=== PATIENT | female | born 1965 | race Two or more races ===

== ENCOUNTER 2024-12-01 08:57 | Outpatient (REF) | payer OTHER, SELFPAY ==
--- OUTSIDE RECORDS SUMMARY | 2024-12-01 09:26 | XMS_ITS | Clinical Summary ---
Author Organization [facility] [address] [place] [address] [place] [id number] Phone Care Team Providers Care Block Inspector Name Role Phone Frank Humphrey Primary Care Provider [phone] Allergies Active Allergy Reactions Criticality Noted Date Comments Lisinopril Cough 11/13/2012 Phenytoin Sodium Extended 02/19/2016 Other Reaction(s): OTHER Patient dizzy and confusion Medications albuterol HFA (PROAIR HFA ; PROVENTIL HFA ; VENTOLIN HFA) 90 mcg/actuation inhaler Inhale 2 puffs. 2 Active azelastine (ASTELIN) 137 mcg (0.1 %) nasal spray 3 Active betamethasone dipropionate 0.05 % lotion Apply topically 2 (two) times a day if needed. 1 Active clotrimazole-betam ethasone (LOTRISONE) 1-0.05 % cream Apply sparingly to external affected area 2 times daily 2 Active polyethylene glycol (PEG) 17 gram/dose oral powder MIX AND TAKE 17 GRAMS BY MOUTH EVERY DAY 0 Active levETIRAcetam (KEPPRA) 750 mg tablet Take 1 tablet (750 mg total) by mouth. Active LORazepam (ATIVAN) 0.5 mg tablet Take 1 tablet (0.5 mg total) by mouth. 2 Active montelukast (SINGULAIR) 10 mg tablet Take 1 tablet (10 mg total) by mouth at bedtime. 4 Active OXcarbazepine (TRILEPTAL) 300 mg tablet Take 1 tablet (300 mg total) by mouth. Active sertraline (ZOLOFT) 50 mg tablet TAKE 1 TABLET BY MOUTH EVERY DAY 90 tablet 3 5 Active atorvastatin (LIPITOR) 20 mg tabletIndications: Mixed hyperlipidemia TAKE 1 TABLET BY MOUTH EVERY DAY 90 tablet 5 Active losartan (COZAAR) 100 mg tablet TAKE 1 TABLET BY MOUTH EVERY DAY 30 tablet 3 5 Active Active Problems Problem Noted Date Diagnosed Date Anxiety 06/05/2022 Mixed hyperlipidemia 04/21/2018 Elevated cholesterol 12/01/2017 Symptomatic menopausal or female climacteric sta lisbet 07/23/2011 S/P BSO (status post bilateral salpingo-oophorec singh) 07/23/2011 Status post vaginal hysterectomy 07/23/2011 HTN (hypertension) 10/05/2010 Asthma 08/21/2005 Venous (peripheral) insufficiency 06/09/2005 Irritable bowel syndrome 06/09/2005 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 ([facility] V24, [facility] V28) 06/09/2005 Overview (08/25/2023): [facility] - 12/08/11 - witnessed grand mal seizure Immunizations Name Administration Dates Next Due Influenza, Unspecified 03/21/2021,03/08/2019 Pneumococcal polysaccharide 23 valent (Pneumovax 23) 2yo and older 06/12/2021 Td Tetanus diptheria (Tdvax) 7yo and older 10/21,06/23/1997 Tdap Tetanus diptheria acell ular pertussis (Boostrix; Adacel) 7yo and older 09/09/2007 Surgical History Surgery Date Site/Laterality Comments COLONOSCOPY PROCEDURE: HISTORICAL COLONOSCOPY; COMMENT: 2005 and mar 2014dr cristofernacho also had colonoscopy 2018 Dr. Pathak OTHER SURGICAL HISTORY PROCEDURE: HISTORY OTHER; COMMENT: bilat vaicose veins dr vargas HYSTERECTOMY 02/2011 PROCEDURE: HISTORICAL HYSTERECTOMY; COMMENT: with BSO BREAST BIOPSY PROCEDURE: BX BREAST; PERC NEEDLE CORE W/IMAG GUID; COMMENT: ? side neg Medical History Medical History Date Comments Generalized convulsive epile psy without mention of intractable epilepsy 06/09/2005 DX:Generalized convulsive ep ilepsy without mention of intractable epilepsy Irritable bowel syndrome 06/09/2005 DX:Irri table bowel syndrome Unspecified venous (peripher al) insufficiency 06/09/2005 DX:Unspecified venous (perip heral) insufficiency Family history of colonic polyps 08/29/2006 DX:Family history of colonic polyps; COMMENT: next CN due [address]m dr weber HTN (hypertension) 10/05/2010 DX:HTN (hyper tension) Diabetes (CMS/HCC V24, CMS/HCC V28) DX:Diabetes (HCC) Family History Medical History Relation Name Comments Diabetes Brother Coronary artery disease Father billy y in life 45 Diabetes Father Hypertension Father Colon polyps Mother Heart failure Mother pacemaker Osteoporosis Mother Thyroid disease Mother Colon polyps Sister 1 fred Diabetes Sister 1 fred Diabetes Sister 2 corwin Blindness Neg Hx Breast cancer Neg Hx Cataracts Neg Hx Glaucoma Neg Hx Macular degeneration Neg Hx Other cancer Neg Hx Ovarian cancer Neg Hx Pancreatic cancer Neg Hx Prostate cancer Neg Hx Strabismus Neg Hx Uterine cancer Neg Hx Relation Name Status Comments Brother Alive htn dm Father (Age 45) DM mi Mother Alive HTNpositive for colonic polyps cholesterol Sister 1 fred Alive HTN fibromyalgi a Sister 2 corwin Alive htn tkr fibromy algia Social History Tobacco Use Types Packs/Day Years Used Date Smoking Tobacco: Never Smokeless Tobacco: Never Alcohol Use Standard Drinks/Week Comments No 0 (1 standard drink = 0.6 oz pur e alcohol) Comments Unknown Sex and Gender Information Value Date Recorded Sex Assigned at Female 05/27/2024 1:52 PM EST Legal Sex Female 2:59 AM EST Gender Identity Female 05/27/2024 1:52 PM EST Sexual Orientation Choose not to disclose 2023 1:52 PM EST Obstetrics History Para Term AB IAB SAB Ectopic Multiple Livin g Live Births 1 1 1 1 Date Outcome GA Total Labor Labor/2nd/3rd Weight Sex Type Anes PTL Darlin A1 A5 Name Clin Term Last Filed Vital Signs Vital Sign Reading Time Taken Comments Blood Pressure 124/78 12/24/2023 11:38 AM EDT Pulse 75 12/24/2023 11:38 AM EDT Temperature - - Respiratory Rate - - Oxygen Saturation - - Inhaled Oxygen Concentration - - Weight 71.5 kg (157 lb 9.6 oz) 12/24/2023 11:38 AM EDT Height 154.9 cm (5' 1 ) 12/24/2023 11:38 AM EDT Body Mass Index 29.78 12/24/2023 11:38 AM EDT Plan of Treatment Upcoming Encounters Date Type Department Care Team (Late st Contact Info) Description 01/12/2025 12:00 PM EDT Office Visit Adult Medicine [facility] [address] [place] [phone] Frank Humphrey, PA [address] [place] [address] Health Maintenance Due Date Last Done Comments Zoster Vaccines (1 of 2) 2013 Depression Screening 06/01/2022 HIV Screening 06/01/2022 Social Influencers of Health Screening 06/01/2022 Pneumococcal Vaccine: 50+ Years (2 of 2 - PCV) 06/12/2022 06/12/2021 Pneumococcal Vaccine: Pediatrics (0 to 5 Years) and At-Risk Patients (6 to 64 Years) (2 of 2 - PCV) 06/12/2022 06/12/2021 RSV Immunization Adult Patients (1 - Risk 60-74 years 1-dose series) 2023 COVID-19 Vaccine ( season) 2024 06/20/2021, 07/29/2020, 06/23/2020 Hypertension/CHF/CAD Annual BMP Blood Test 12/23/2024 12/24/2023 Colorectal Cancer Screening: Colonoscopy 02/19/2026 02/19/2019 Breast Cancer Screening 05/29/2026 05/29/20 24, 04/23/2023, 04/20/2022, Additional history exists Cervical Cancer Screening: Pap Smear 07/02/2026 07/02/2023 DTaP,Tdap,and Td Vaccines (4 - Td or Tdap) 10/22/2027 10/21/2017, 09/09/2007, 06/23/1997 Cholesterol Screening (Lipid Panel) 12/23/2028 12/24/2023, 02/05/2023 Hepatitis C Screening Completed 10/11/2021 Influenza Vaccine Completed 03/03/2024, , 03/08/2019 HIB Vaccines Aged Out No longer eligi ble based on patient's age to complete this topic HPV Vaccines Aged Out No longer eligi ble based on patient's age to complete this topic Hepatitis A Vaccines Aged Out No long er eligible based on patient's age to complete this topic Hepatitis B Vaccines Aged Out No long er eligible based on patient's age to complete this topic IPV Vaccines Aged Out No longer eligi ble based on patient's age to complete this topic MMR Vaccines Aged Out No longer eligi ble based on patient's age to complete this topic Meningococcal ACWY Vaccine Aged Out N o longer eligible based on patient's age to complete this topic Meningococcal B Vaccine Aged Out No l onger eligible based on patient's age to complete this topic RSV Immunization Patients Under 20 months Aged Out No longer eligible based on patient's age to complete this topic Varicella Vaccines Aged Out No longer eligible based on patient's age to complete this topic Procedures Procedure Name Priority Date/Time Associated Diagnosis Comments MG MAMMO DIGITAL SCREENING W GARCIA BILAT Routine 05/29/2024 11:17 AM EST Encounter for screening mammogram for malignant neoplasm of breast LIPID PANEL Routine 02/05/2023 HEPATITIS C SCREENING Routine 10/11/2021 COLONOSCOPY Routine 02/19/2019 from Last 3 Months or Most Recently Relevant to Health Maintenance Results * MG Mammo Digital Screening w Garcia bilat (05/29/2024 11:17 AM EST) Anatomical Region Laterality Modality Breast Bilateral Mammography 05/31/2024 2:49 PM EST Impressions 05/31/2024 2:50 PM EST No mammographic evidence of malignancy. BREAST DENSITY: B - There are scattered areas of fibroglandular density. BI-RADS CATEGORY: 1 - NEGATIVE RECOMMENDATION: Screening bilateral mammogram is recommended in 1 year. MAMMO LOCATION: [facility], [address] [place] [address], [id number], . -------- FINAL REPORT -------- Dictated By: Janelle Michael Dictated Date: 05/31/2024 14:49 ET Assigned Physician: Janelle Michael Reviewed and Electronically Signed By: Janelle Michael Signed Date: 05/31/2024 14:50 ET Workstation ID: [id number] Transcribed By: Self Edit Transcribed Date: 05/31/2024 14:49 ET Narrative 05/31/2024 2:50 PM EST EXAM: Screening Mammogram CLINICAL: 59 years old, Female, routine annual exam. COMPARISON: 04/23/2023 and as far back as 04/05/2020 ?? TECHNIQUE: Bilateral MLO and CC views were obtained digitally with 3-D mammogram (digital breast tomosynthesis). Computer-aided detection was utilized in evaluation of this exam (CAD). FINDINGS: No new suspicious mass, architectural distortion, or suspicious calcifications. Procedure Note Janelle Michael MD - 05/31/2024 EXAM: Screening Mammogram CLINICAL: 59 years old, Female, routine annual exam. COMPARISON: 04/23/2023 and as far back as 04/05/2020 TECHNIQUE: Bilateral MLO and CC views were obtained digitally with 3-Dmammogram (digital breast tomosynthesis). Computer-aided detection wasutilized in evaluation of this exam (CAD). FINDINGS: No new suspicious mass, architectural distortion, or suspiciouscalcifications. IMPRESSION: No mammographic evidence of malignancy. BREAST DENSITY: B - There are scattered areas of fibroglandular density. BI-RADS CATEGORY: 1 - NEGATIVE RECOMMENDATION: Screening bilateral mammogram is recommended in 1 year. MAMMO LOCATION: [facility], [address] [place] [address], [id number], . -------- FINAL REPORT -------- Dictated By: Janelle Michael Dictated Date: 05/31/2024 14:49 ET Assigned Physician: Janelle Michael Reviewed and Electronically Signed By: Janelle Michael Signed Date: 05/31/2024 14:50 ET Workstation ID: [id number] Transcribed By: Self Edit Transcribed Date: 05/31/2024 14:49 ET us Irma Staton MD IMG BI PROCEDURES Final Res ult * Lipid panel (02/05/2023) LDL/HDL Ratio 2 Triglycerides 67 mg/dL Cholesterol 229 mg/dL HDL 110 mg/dL LDL Cholesterol 106 mg/dL Blood Venous blood specimen / Unknown Historical Provider LAB BLOOD ORDERABLES Rita l Result * Hepatitis C Screening (10/11/2021) Hepatitis C Screening Negative Historical Provider HEALTH MAINTENANCE Final Result * Colonoscopy (02/19/2019) Colonoscopy Normal Anatomical Region Laterality Modality Other Historical Provider HEALTH MAINTENANCE Final Result from Last 3 Months or Most Recently Relevant to Health Maintenance Insurance Care Teams Block Inspector Relationship Specialty Start Date End Date Frank Humphrey PA [address] [place] [address] PCP - General Internal Medicine 05/28/24
[2024-12-01 10:29] LABS: Alanine Aminotransferase 40 U/L (0-31); Albumin Level 3.9 g/dL (3.5-5.0); Alkaline Phosphatase 77 U/L (39-117); Anion Gap 8 (12-20); Aspartate Amino Transferase 44 U/L (5-31); Bilirubin Direct 0.2 mg/dL (0.0-0.5); Bilirubin Total 0.3 mg/dL (0.0-1.0); Blood Urea Nitrogen 14 mg/dL (9-16); Calcium 9.3 mg/dL (8.4-10.2); Carbon Dioxide 30 mmol/L (22-29); Chloride 104 mmol/L (96-108); Estimated Glomerular Filt Rate > 60; Glucose Random 70 mg/dL (60-115); Potassium 3.8 mmol/L (3.3-5.1); Sodium 138 mmol/L (135-145); Total Protein 6.6 g/dL (6.5-8.0)
== END 2024-12-01 08:58 | disposition home or self-care (01) ==
LOC: HO.LAB 08:57
PROVIDERS: PCP Physician Assistant Medical; Visit Provider Psychiatry & Neurology Neurology
DX: G40.209 Localization-related (focal) (partial) symptomatic epilepsy and epileptic syndromes with complex partial seizures, not intractable, without status epilepticus (principal)
CPT/HCPCS: 36415; 80048; 80076

== ENCOUNTER 2025-06-01 08:48 | Outpatient (AMB) | payer OTHER, SELFPAY ==
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
== END 2025-06-01 09:14 | disposition home or self-care (01) ==
LOC: HO.HSM 08:48
PROVIDERS: PCP Physician Assistant Medical; Referring Provider Physician Assistant Medical; Visit Provider Psychiatry & Neurology Neurology
DX: G40.109 Localization-related (focal) (partial) symptomatic epilepsy and epileptic syndromes with simple partial seizures, not intractable, without status epilepticus (principal)
CPT/HCPCS: 99214